=== PATIENT | male | born 1955 | race Caucasian/White ===

== ENCOUNTER 2019-04-08 21:18 | Inpatient (IN) ==
[2019-04-09] MEDS ORDERED: ACETAMINOPHEN 325 MG TABLET PO PRN (00:01)
[2019-04-09] MEDS ORDERED: NICOTINE 21 MG/24 HR PATCH TRANSDERM PRN (00:01)
[2019-04-09 01:13] LABS: Basophils % 0.2 % (0.0-0.8); Eosinophils # 0.1 10*3/uL (0.0-0.87); Eosinophils % 1.1 % (0.00-10.9); Hematocrit 22.6 VOL% (42.0-52.0); Hemoglobin 7.6 GM/DL (14.0-18.0); Immature Granulocytes % 4.6 %; Immature Granulocytes Absolute 0.28 #; Lymphocytes # 0.8 10*3/uL (1.4-4.0); Lymphocytes % 12.5 % (21.2-54.2); Mean Corpuscular HGB Conc 33.6 GM/DL (32-36); Mean Corpuscular Volume 87.6 FL (87-102); Mean Platelet Volume 10.5 FL (9.6-12.0); Monocytes % 12.9 % (1.7-12.7); Neutrophils % 68.7 % (38.7-73.9); Platelet Count 154 T/CUMM (130-400); Red Blood Count 2.58 MC/CUMM (3.8-5.5); Red Cell Distribution Width 29.7 % (9.3-17.3); White Blood Count 6.1 T/CUMM (4-12)
[2019-04-09 01:25] LABS: Albumin 2.9 G/DL (3.4-5.0); Bilirubin,Total 0.9 MG/DL (0.2-1.0); Calcium 7.5 MG/DL (8.5-10.1); Osmolality,Calculated 255.9 MOS/KG (273-304); Total Protein 6.6 G/DL (6.4-8.3); VLDL CHOLESTEROL 16.6 MG/DL
[2019-04-09] MEDS ORDERED: SODIUM CHLORIDE 0.9% 1,000 ML IV PRN (01:39)
[2019-04-09] MEDS: MORPHINE 4 MG/1 ML VIAL IV PRN ×5 (02:16→22:42)
[2019-04-09] MEDS: SODIUM CHLORIDE 0.9% 1,000 ML IV SCH ×2 (02:19→19:31)
[2019-04-09] MEDS: CLINDAMYCIN INJ 600 MG in PREMIX 1 EACH IV SCH ×3 (02:20→17:39)
[2019-04-09 02:24] LABS: Basophils % 0.3 % (0.0-0.8); Eosinophils # 0.1 10*3/uL (0.0-0.87); Eosinophils % 1.6 % (0.00-10.9); Hematocrit 20.8 VOL% (42.0-52.0); Immature Granulocytes % 3.9 %; Immature Granulocytes Absolute 0.25 #; Lymphocytes # 0.9 10*3/uL (1.4-4.0); Lymphocytes % 14.4 % (21.2-54.2); Mean Corpuscular HGB Conc 33.7 GM/DL (32-36); Mean Corpuscular Volume 86.7 FL (87-102); Mean Platelet Volume 9.5 FL (9.6-12.0); Monocytes % 12.1 % (1.7-12.7); NRBC # 0.02 10*3/uL; Neutrophils % 67.7 % (38.7-73.9); Platelet Count 141 T/CUMM (130-400); Red Cell Distribution Width 29.7 % (9.3-17.3); White Blood Count 6.4 T/CUMM (4-12)
[2019-04-09 02:41] LABS: Ferritin 517.9 ng/ml (26-388)
[2019-04-09 02:45] LABS: Vitamin B12 301 PG/ML (211-911)
[2019-04-09 03:31] LABS: Sedimentation Rate-Westergren 91 MM/HR (0-20)
[2019-04-09 04:02] LABS: Hypochromasia 1+; Platelet Estimate Adequate
[2019-04-09 05:44] LABS: Apearance,Urine CLEAR (Clear); Bilirubin,Urine Negative (Negative); Blood, Urine Negative (Negative); Glucose,Urine (UA) Negative (Negative); Ketones,Urine Negative (Negative); Nitrite,Urine Negative (Negative); Protein,Urine Negative; RBC,Urine 1 /HPF (0-4); Urine Color Yellow (Yellow); Urine Specific Gravity 1.008 (1.001-1.035); WBC,Urine 1 /HPF (0-6)
[2019-04-09 07:04] LABS: Barbiturates Screen,Urine Negative (Negative); Benzodiazepines Screen,Urine Negative (Negative); Cannabinoid Screen,Urine Negative (Negative); Opiate Screen,Urine Positive (Negative); Phencyclidine Screen,Urine Negative (Negative)
[2019-04-09 09:20] LABS: Basophils % 0.4 % (0.0-0.8); Eosinophils # 0.1 10*3/uL (0.0-0.87); Eosinophils % 1.5 % (0.00-10.9); Hematocrit 23.4 VOL% (42.0-52.0); Immature Granulocytes % 2.8 %; Immature Granulocytes Absolute 0.15 #; Lymphocytes # 0.6 10*3/uL (1.4-4.0); Mean Corpuscular HGB Conc 34.2 GM/DL (32-36); Mean Platelet Volume 10.3 FL (9.6-12.0); Monocytes % 8.4 % (1.7-12.7); Neutrophils % 75.9 % (38.7-73.9); Platelet Count 125 T/CUMM (130-400); Red Blood Count 2.69 MC/CUMM (3.8-5.5); White Blood Count 5.3 T/CUMM (4-12)
[2019-04-09 09:35] LABS: Calcium 7.4 MG/DL (8.5-10.1); Osmolality,Calculated 253.2 MOS/KG (273-304)
[2019-04-09 10:16] LABS: Hypochromasia Slight; Platelet Estimate Decreased
[2019-04-09] MEDS ORDERED: NF- (Umeclidinium [Incruse Ellipta] 1 inh) INH SCH (15:45)
[2019-04-09] MEDS: ONDANSETRON 4 MG/2 ML VIAL IV PRN (17:38)
[2019-04-09] MEDS: ATORVASTATIN 20 MG TABLET PO SCH (21:05)
[2019-04-10] MEDS: CLINDAMYCIN INJ 600 MG in PREMIX 1 EACH IV SCH ×4 (01:16→23:39)
[2019-04-10] MEDS: MORPHINE 4 MG/1 ML VIAL IV PRN ×7 (01:16→22:53)
[2019-04-10] MEDS: ONDANSETRON 4 MG/2 ML VIAL IV PRN ×3 (01:23→17:59)
[2019-04-10] MEDS: LEVOTHYROXINE 50 MCG TABLET PO SCH (06:14)
[2019-04-10] MEDS: METOPROLOL TARTRATE 50 MG TABLET PO SCH (08:38)
[2019-04-10] MEDS: CITALOPRAM 40 MG TABLET PO SCH (08:38)
[2019-04-10] MEDS: SODIUM CHLORIDE 0.9% 1,000 ML IV SCH ×2 (09:09→22:53)
[2019-04-10] MEDS: ATORVASTATIN 20 MG TABLET PO SCH (20:02)
[2019-04-11] MEDS: MORPHINE 4 MG/1 ML VIAL IV PRN ×3 (02:09→13:12)
[2019-04-11] MEDS: LEVOTHYROXINE 50 MCG TABLET PO SCH (06:06)
[2019-04-11] MEDS: CLINDAMYCIN INJ 600 MG in PREMIX 1 EACH IV SCH (08:30)
[2019-04-11] MEDS: METOPROLOL TARTRATE 50 MG TABLET PO SCH (08:30)
[2019-04-11] MEDS: ONDANSETRON 4 MG/2 ML VIAL IV PRN (08:30)
[2019-04-11] MEDS: CITALOPRAM 40 MG TABLET PO SCH (08:30)
[2019-04-11 12:28] VITALS: BP 116/67
[2019-04-11] MEDS: SODIUM CHLORIDE 0.9% 1,000 ML IV SCH (13:48)
[2019-04-11] MEDS ORDERED: cephALEXin 500 MG CAPSULE PO SCH (21:00)
== END 2019-04-11 15:38 | disposition home health service (06) | DRG 603 ==
LOC: N.4E 22:30 → SUATTDRO 22:30
PROVIDERS: ADMIT Internal Medicine; ATTEND Hospitalist

== ENCOUNTER 2019-04-29 04:30 | Inpatient (IN) ==
[2019-04-29] MEDS ORDERED: ONDANSETRON 4 MG/2 ML VIAL IV PRN (07:43)
[2019-04-29] MEDS ORDERED: ACETAMINOPHEN 325 MG TABLET PO PRN (07:43)
[2019-04-29] MEDS ORDERED: LORazepam 2 MG/1 ML VIAL IV PRN (07:46)
[2019-04-29] MEDS: PANTOPRAZOLE 40 MG TABLET PO SCH (09:30)
[2019-04-29] MEDS: GABAPENTIN 100 MG CAPSULE PO SCH ×2 (15:52→20:31)
[2019-04-29] MEDS: fentaNYL 12 MCG/HR PATCH TRANSDERM SCH (15:53)
[2019-04-29] MEDS: IPRATROPIUM 500 MCG/2.5 ML NEB RESP TX SCH (19:37)
[2019-04-29] MEDS ORDERED: ATORVASTATIN 20 MG TABLET PO SCH (21:00)
[2019-04-29] MEDS ORDERED: ENOXAPARIN 40 MG/0.4 ML SYRINGE SUBCUT SCH (21:00)
[2019-04-29] MEDS: HYDROmorphone 2 MG/1 ML VIAL IV PRN (22:04)
[2019-04-30] MEDS: HYDROmorphone 2 MG/1 ML VIAL IV PRN ×3 (01:40→12:58)
[2019-04-30 06:11] LABS: Basophils # 0.1 10*3/uL (0.0-0.2); Basophils % 0.8 % (0.0-0.8); Eosinophils # 0.2 10*3/uL (0.0-0.87); Eosinophils % 2.5 % (0.00-10.9); Hemoglobin 9.8 GM/DL (14.0-18.0); Immature Granulocytes % 3.1 %; Immature Granulocytes Absolute 0.24 #; Lymphocytes # 1.1 10*3/uL (1.4-4.0); Lymphocytes % 13.6 % (21.2-54.2); Mean Corpuscular HGB Conc 33.8 GM/DL (32-36); Mean Corpuscular Volume 93.5 FL (87-102); Mean Platelet Volume 9.6 FL (9.6-12.0); Monocytes % 13.5 % (1.7-12.7); Neutrophils % 66.5 % (38.7-73.9); Platelet Count 283 T/CUMM (130-400); Red Cell Distribution Width 20.2 % (9.3-17.3); White Blood Count 7.9 T/CUMM (4-12)
[2019-04-30] MEDS: LEVOTHYROXINE 50 MCG TABLET PO SCH (06:12)
[2019-04-30 06:44] LABS: Calcium 7.8 MG/DL (8.5-10.1); Osmolality,Calculated 255.8 MOS/KG (273-304)
[2019-04-30] MEDS: IPRATROPIUM 500 MCG/2.5 ML NEB RESP TX SCH ×5 (07:40→20:21)
[2019-04-30] MEDS: GABAPENTIN 100 MG CAPSULE PO SCH ×3 (08:57→21:15)
[2019-04-30] MEDS: CITALOPRAM 40 MG TABLET PO SCH (08:57)
[2019-04-30] MEDS: PANTOPRAZOLE 40 MG TABLET PO SCH (08:58)
[2019-04-30] MEDS: ASPIRIN EC 81 MG TABLET PO SCH (08:58)
[2019-04-30] MEDS: POLYETHYLENE GLYCOL POWDER 17 GM PACK PO SCH (08:58)
[2019-04-30] MEDS: LIDOCAINE 5% PATCH TRANSDERM SCH (08:59)
[2019-04-30] MEDS: METOPROLOL TARTRATE 50 MG TABLET PO SCH (14:47)
[2019-04-30] MEDS: fentaNYL 12 MCG/HR PATCH TRANSDERM SCH (21:15)
[2019-04-30] MEDS: ATORVASTATIN 40 MG TABLET PO SCH (21:15)
[2019-04-30] MEDS: APIXABAN 5 MG TABLET PO SCH (21:15)
[2019-05-01] MEDS: LEVOTHYROXINE 50 MCG TABLET PO SCH (05:53)
[2019-05-01 06:02] LABS: Basophils # 0.1 10*3/uL (0.0-0.2); Basophils % 0.8 % (0.0-0.8); Eosinophils # 0.1 10*3/uL (0.0-0.87); Eosinophils % 0.9 % (0.00-10.9); Hematocrit 28.5 VOL% (42.0-52.0); Hemoglobin 9.7 GM/DL (14.0-18.0); Immature Granulocytes % 1.3 %; Lymphocytes # 0.8 10*3/uL (1.4-4.0); Lymphocytes % 10.7 % (21.2-54.2); Mean Corpuscular Volume 91.9 FL (87-102); Mean Platelet Volume 9.7 FL (9.6-12.0); Monocytes % 12.1 % (1.7-12.7); Neutrophils % 74.2 % (38.7-73.9); Platelet Count 283 T/CUMM (130-400); Red Cell Distribution Width 19.1 % (9.3-17.3); White Blood Count 7.4 T/CUMM (4-12)
[2019-05-01 06:19] LABS: Calcium 7.7 MG/DL (8.5-10.1); Osmolality,Calculated 253.9 MOS/KG (273-304)
[2019-05-01] MEDS: IPRATROPIUM 500 MCG/2.5 ML NEB RESP TX SCH ×4 (07:18→19:17)
[2019-05-01] MEDS: LIDOCAINE 5% PATCH TRANSDERM SCH (09:27)
[2019-05-01] MEDS: ASPIRIN EC 81 MG TABLET PO SCH (09:28)
[2019-05-01] MEDS: CITALOPRAM 40 MG TABLET PO SCH (09:28)
[2019-05-01] MEDS: PANTOPRAZOLE 40 MG TABLET PO SCH (09:28)
[2019-05-01] MEDS: APIXABAN 5 MG TABLET PO SCH ×2 (09:28→21:18)
[2019-05-01] MEDS: GABAPENTIN 100 MG CAPSULE PO SCH ×3 (09:28→21:18)
[2019-05-01] MEDS: POLYETHYLENE GLYCOL POWDER 17 GM PACK PO SCH (09:29)
[2019-05-01] MEDS: METOPROLOL TARTRATE 50 MG TABLET PO SCH (09:29)
[2019-05-01 12:25] LABS: Troponin I < 0.015 NG/ML (0.00-0.045)
[2019-05-01] MEDS: ATORVASTATIN 40 MG TABLET PO SCH (21:18)
[2019-05-02] MEDS: LEVOTHYROXINE 50 MCG TABLET PO SCH (06:48)
[2019-05-02] MEDS: IPRATROPIUM 500 MCG/2.5 ML NEB RESP TX SCH ×4 (07:50→20:00)
[2019-05-02] MEDS: fentaNYL 12 MCG/HR PATCH TRANSDERM SCH (08:12)
[2019-05-02] MEDS: CITALOPRAM 40 MG TABLET PO SCH (08:13)
[2019-05-02] MEDS: APIXABAN 5 MG TABLET PO SCH (08:13)
[2019-05-02] MEDS: ASPIRIN EC 81 MG TABLET PO SCH (08:13)
[2019-05-02] MEDS: LIDOCAINE 5% PATCH TRANSDERM SCH (08:13)
[2019-05-02] MEDS: GABAPENTIN 100 MG CAPSULE PO SCH ×3 (08:14→20:55)
[2019-05-02] MEDS: PANTOPRAZOLE 40 MG TABLET PO SCH (08:14)
[2019-05-02] MEDS: METOPROLOL TARTRATE 50 MG TABLET PO SCH (08:15)
[2019-05-02] MEDS: POLYETHYLENE GLYCOL POWDER 17 GM PACK PO SCH (08:15)
[2019-05-02] MEDS: ATORVASTATIN 40 MG TABLET PO SCH (20:55)
[2019-05-03 05:07] LABS: Basophils % 0.7 % (0.0-0.8); Eosinophils # 0.1 10*3/uL (0.0-0.87); Eosinophils % 1.7 % (0.00-10.9); Hematocrit 27.1 VOL% (42.0-52.0); Hemoglobin 9.3 GM/DL (14.0-18.0); Immature Granulocytes % 1.2 %; Immature Granulocytes Absolute 0.07 #; Lymphocytes # 0.5 10*3/uL (1.4-4.0); Lymphocytes % 9.2 % (21.2-54.2); Mean Corpuscular HGB Conc 34.3 GM/DL (32-36); Mean Corpuscular Volume 91.9 FL (87-102); Mean Platelet Volume 9.6 FL (9.6-12.0); Monocytes % 10.7 % (1.7-12.7); Neutrophils % 76.5 % (38.7-73.9); Platelet Count 239 T/CUMM (130-400); Red Blood Count 2.95 MC/CUMM (3.8-5.5); Red Cell Distribution Width 18.4 % (9.3-17.3); White Blood Count 5.9 T/CUMM (4-12)
[2019-05-03 05:21] LABS: Calcium 7.7 MG/DL (8.5-10.1); Osmolality,Calculated 258.7 MOS/KG (273-304)
[2019-05-03] MEDS: LEVOTHYROXINE 50 MCG TABLET PO SCH (05:53)
[2019-05-03] MEDS: IPRATROPIUM 500 MCG/2.5 ML NEB RESP TX SCH ×3 (07:40→14:35)
[2019-05-03] MEDS: GABAPENTIN 100 MG CAPSULE PO SCH ×2 (09:07→14:35)
[2019-05-03] MEDS: METOPROLOL TARTRATE 50 MG TABLET PO SCH (09:07)
[2019-05-03] MEDS: CITALOPRAM 40 MG TABLET PO SCH (09:07)
[2019-05-03] MEDS: PANTOPRAZOLE 40 MG TABLET PO SCH (09:07)
[2019-05-03] MEDS: ASPIRIN EC 81 MG TABLET PO SCH (09:07)
[2019-05-03] MEDS: LIDOCAINE 5% PATCH TRANSDERM SCH (09:07)
[2019-05-03] MEDS: POLYETHYLENE GLYCOL POWDER 17 GM PACK PO SCH (09:21)
[2019-05-03] MEDS ORDERED: SODIUM CHLORIDE 0.9% 1,000 ML IV SCH (11:00)
[2019-05-03 11:39] VITALS: BP 126/72
[2019-05-03] MEDS ORDERED: PROPOFOL 200 MG/20 ML VIAL IV ONE (13:19)
[2019-05-03] MEDS ORDERED: ONDANSETRON 4 MG/2 ML VIAL ONE (13:19)
[2019-05-03] MEDS ORDERED: ETOMIDATE 40 MG/20 ML VIAL IV ONE (13:19)
[2019-05-03] MEDS ORDERED: LIDOCAINE 2% 5 ML VIAL ONE (13:19)
== END 2019-05-03 16:48 | disposition hospice, home (50) | DRG 65 ==
LOC: N.4E 04:39 → SUATTDRO 06:14 → INTOOBSV 06:14
PROVIDERS: ADMIT Internal Medicine; ATTEND Internal Medicine